=== PATIENT | male | born 1965 | race Caucasian/White ===

== ENCOUNTER → 2017-03-18 | Outpatient (CLI) | payer OTHER ==
[~2017-03-18] MED LIST: FLAGYL 500MG.500 MG PO; LEVOFLOXACIN 5500 MG PO; PREDNISONE 20MG20 MG PO
[2017-03-18 12:45] LABS: HEMOGLOBIN 13.7 g/dL (14.1-18.0); LYMPH # 1.2 K/mm3 (0.7-4.5); LYMPH % 27.4 % (10-50)
[2017-03-18 13:05] LABS: BUN 21 mg/dL (7-18)
[2017-03-18 13:06] LABS: GFR (ESTIMATED) 78 ML/MIN (>60)
== END ==
LOC: CARL-LAB 08:18
PROVIDERS: Physician Assistant
DX: K50.90 Crohn's disease, unspecified, without complications (principal)

== ENCOUNTER → 2017-04-01 | Outpatient (CLI) | payer OTHER ==
[2017-04-01 14:15] LABS: LYMPH # 1.4 K/mm3 (0.7-4.5); LYMPH % 26.3 % (10-50)
== END ==
LOC: CARL-LAB 08:46
PROVIDERS: Internal Medicine Gastroenterology
DX: K50.90 Crohn's disease, unspecified, without complications (principal)